=== PATIENT | female | born 1965 | race Hispanic/Latino ===

== ENCOUNTER 2024-01-14 18:42 | Emergency (ER) | payer OTHER, SELFPAY ==
--- NOTE | 2024-01-14 19:39 | RAD REPORT ---
EXAMINATION: Forearm Right CLINICAL INDICATION: Female, 58 years old. fall/injury COMPARISON: No prior exam. FINDINGS: No acute right forearm fracture. No malalignment/dislocation. Other: n/a IMPRESSION: No acute osseous abnormality involving the right forearm.
[2024-01-14] MEDS ORDERED: DIAZEPAM 5 MG TABLET ONE (19:43)
--- NOTE | 2024-01-14 19:50 | RAD REPORT ---
EXAMINATION: Elbow Right 3 View CLINICAL INDICATION: Female, 58 years old. fall/injury RIGHT COMPARISON: No prior exam. FINDINGS: No acute fracture. No malalignment/dislocation. Olecranon spurring. Other: n/a IMPRESSION: No acute osseous abnormality.
--- NOTE | 2024-01-14 19:57 | RAD REPORT ---
EXAMINATION: CT HEAD WITHOUT CONTRAST CT CERVICAL SPINE WITHOUT CONTRAST CLINICAL INDICATION: Female, 58 years old. fall/injury TECHNIQUE: Axial CT images from the skull base to the vertex without intravenous contrast. Axial CT i mages through the cervical spine were obtained without intravenous contrast. Sagittal and coronal reformatted images were created from the data set. Coronal and sagittal reformatted images were creat ed from the data set. One or more of the following dose reduction techniques were used: Automated exposure control, adjustment of the mA and/or kV according to patient size, and/or iterative reconstr uction. Unless otherwise specified, incidental findings do not require dedicated imaging follow-up. [id number]. COMPARISON: No prior exam. FINDINGS: Head: INTRACRANIAL: No acute intracranial hemorrhage. No hydrocephalus. 9 mm x 13 mm lesion present along t he right anterior clinoid process No significant white matter disease. VASCULATURE: No visualized abnormalities in the arteries or dural venous sinuses. SCALP/SKULL: No significant soft tissue or osseous abnormalities. SINUSES: The visualized paranasal sinuses and mastoid air cells are predominantly clear. Cervical spine: ALIGNMENT: The cervical spine has normal alignment without scoliosis or spondylolisthesis. BONE: Vertebral body heights are maintained. No aggressive osseous lesions. DEGENERATIVE CHANGES: Mild degenerative changes including mild right neural foraminal narrowing at C3 -4 and moderate left neural foraminal narrowing at C5-6. SOFT TISSUE: No significant abnormalities in the soft tissue of the neck. The visualized lung apices are clear. IMPRESSION: 1. No acute intracranial hemorrhage or skull fracture. Mass along the right anterior clinoid process measuring up to 13 mm could represent a meningioma or possibly aneurysm. Further evaluation with MRI with and without contrast is recommended. A CTA could exclude an aneurysm. 2. No acute fracture or traumatic malalignment of the cervical spine.
[2024-01-14 20:26] LABS: Absolute Basophils 0.1 K/uL (0-0.5); Absolute Eosinophils 0.3 K/uL (0-0.5); Absolute Lymphocytes (CBC) 2.1 K/uL (0.7-4.9); Absolute Monocytes 0.5 K/uL (0.1-1.3); Absolute Neutrophil 5.3 K/uL (1.8-8.0); Basophils % 0.8 % (0-1.3); Eosinophils % 3.4 % (0-4.4); Hemoglobin 14.1 g/dL (12.0-15.0); Lymphocytes % 25.3 % (15.3-44.8); MCH 30.9 pg (27.0-35.0); MCHC 33.5 g/dL (32.0-36.0); MCV 92.1 fL (80-100); MPV 7.8 fL (7.6-11.3); Monocytes % 6.1 % (3.3-12.3); Neutrophils % 64.4 % (41.7-73.7); Nucleated Red Blood Cells % 0.1 % (0-0); Platelets 349 thou/uL (152-406); RBC Red Blood Cell Count 4.56 M/uL (3.86-4.86)
[2024-01-14 20:32] LABS: Anion Gap 9.5 mEq/L (5.0-15.0); Potassium 3.5 mEq/L (3.5-5.1)
--- NOTE | 2024-01-14 21:00 | RAD REPORT ---
EXAMINATION: CTA HEAD CLINICAL INDICATION: Female, 58 years old. eval for aneurysm TECHNIQUE: Axial CT images were obtained through the head after intravenous contrast utilizing angiog raphic protocol with 3D post-processing (maximum intensity projection images, volume rendered images and/or shaded surface rendered images). One or more of the following dose reduction technique s were used: Automated exposure control, adjustment of the mA and/or kV according to patient size, and/or iterative reconstruction. Unless otherwise specified, incidental findings do not require dedic ated imaging follow-up. COMPARISON: Same day head CT. 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 The bilateral ICA s are patent without evidence of stenosis or occlusion. SHAN: Anterior cerebral arteries are normal bilaterally. The anterior communicating artery is patent. MCA: Middle cerebral arteries are normal bilaterally. MANAGER PORT: Posterior cerebral arteries are normal bilaterally. Vertebrobasilar: The vertebral arteries are patent. The basilar artery is normal in appearance. 3D images confirm these findings. IMPRESSION: Large saccular right supraclinoid ICA aneurysm measuring up to 13 mm. Recommend neurosurgical consult ation. Conveyed to Dr. Ram by Dr. Wong at 855 pm on 01/14/24
--- NOTE | 2024-01-14 21:05 | EDPHYS ---
Physician Documentation [facility] Name: Roseann Zhang Age: 58 yrs Sex: Female : 1965 Arrival Date: 01/14/2024 Time: 18:42 Bed 5 Private MD: ED Physician Brendon Ram HPI: 01/13 19:08 This 58 yrs old Female presents to ER via Ambulatory with complaints of Fall ec2 Injury. 19:08 Patient arrives today for evaluation after ground-level fall. Patient reports that she ec2 slipped and fell and injured the right arm and her right head. Reports possible LOC, no blood thinners. Complains of head and neck pain as well as right elbow and forearm pain.. Historical: - Allergies: 18:49 No Known Allergies; kc6 - PMHx: 18:49 Hypothyroidism; Hypercholesterolemia; kc6 - PSHx: 18:49 None; kc6 - Immunization history:: Last tetanus immunization: not immunized. - Infectious Disease History:: Denies. - Social history:: Smoking status: Patient denies any tobacco usage or history of. ROS: 19:08 Constitutional: as per hpi ec2 Exam: 19:08 Constitutional: GEN: No acute distress HEENT: -Head: no deformities, contusion to the ec2 right forehead -Eyes: EOMI CV: regular rate LUNGS: no respiratory distress ABD: non-tender SKIN: no wounds appreciated MSK: No C/T/L spine deformities RUE w/o bony deformity, TTP to the elbow and forearm with intact distal neurovascular status. LUE w/o bony deformity RLE w/o bony deformity LLE w/o bony deformity NEURO: moves all extremities equally, GCS 15 (E4, V5, M6) Vital Signs: 18:47 Pain 8/10; kc6 18:51 BP 144 / 73; Pulse 67; Resp 17 S; Temp 98.2(O); Pulse Ox 98% on R/A; Weight 72.57 kg kc6 (R); Height 5 ft. 1 in. (R); Pain 8/10; 19:00 BP 149 / 81; Pulse 67; Resp 18; Pulse Ox 96% on R/A; al5 19:15 BP 138 / 76; Pulse 67; Resp 17; Pulse Ox 96% on R/A; al5 19:45 BP 149 / 88; Pulse 66; Resp 16; Pulse Ox 97% on R/A; al5 20:00 BP 140 / 73; Pulse 68; Resp 16; Pulse Ox 95% on R/A; al5 20:15 BP 147 / 82; Pulse 67; Resp 17; Pulse Ox 97% on R/A; al5 20:48 BP 156 / 89; Pulse 66; Resp 17; Pulse Ox 98% on R/A; al5 21:00 BP 153 / 84; Pulse 71; Resp 15; Pulse Ox 98% on R/A; al5 21:15 BP 162 / 91; Pulse 71; Resp 17; Pulse Ox 97% on R/A; al5 21:30 BP 130 / 67; Pulse 67; Resp 13; Pulse Ox 96% on R/A; al5 18:51 Body Mass Index 30.23 (72.57 kg, 154.94 cm) kc6 18:47 Pain Scale: Adult kc6 18:51 Pain Scale: Adult kc6 MDM: 19:01 Medical Screening Exam initiated ec2 19:08 Data reviewed: vital signs, nurses notes. ED course: Patient arrives today for ec2 evaluation after ground-level fall. Evaluation is revealing for MSK findings as above. Will obtain CT scan of the head and C-spine given the patient's LOC, will obtain elbow and forearm x-rays as well.. 19:59 ED course: CT scan of the head assessment for traumatic pathology, does show possible ec2 mass versus aneurysm, will obtain follow-up CT angio of the head to further clarify this. Radiographs otherwise negative.. 21:04 ED course: Discussed the case with radiology, found to have a 1.3 cm aneurysm in the ec2 right ICA, patient without any focal deficits, remains intact neurologically with minimally elevated blood pressures, will transfer patient to neurosurgical capable facility.. 21:21 ED course: I discussed case with neurology and will transfer for further management. ec2 Will start the patient on Cardene with a blood pressure goal systolics less than 140 per neurology recommendations at [facility]. 01/13 19:59 Order name: CBC with Diff; Complete Time: 20:49 ec2 01/13 19:59 Order name: BMP; Complete Time: 20:49 ec2 01/13 19:07 Order name: Elbow Right 3 View XRAY; Complete Time: 19:58 ec2 01/13 19:07 Order name: CT Head C Spine; Complete Time: 19:58 ec2 01/13 19:07 Order name: Forearm Right XRAY; Complete Time: 19:50 ec2 01/13 19:59 Order name: CT Head Angio; Complete Time: 21:01 ec2 01/13 19:59 Order name: IV; Complete Time: 20:25 ec2 Administered Medications: 19:18 CANCELLED (Physician Discretion): diazepam5 mg IM once ec2 19:51 Drug: Diazepam PO 5 mg PO once Route: PO; al5 21:06 Follow up: Response: No adverse reaction al5 21:39 Drug: niCARdipine IV 5 mg/hr IV at calculated rate See Administration Instructions; al5 (Standard concentration 25 mg / 250 mL NS); Recommended max rate 15 mg/hr; Titrate 2.5 mg/hr as often as every 15 minutes to achieve goal (see titration policy); Goal parameter SBP less than 160 mmHg Route: IV; Rate: calculated rate; Site: right antecubital; 22:20 Follow up: Response: No adverse reaction; IV Status: Infusion continued upon transfer al5 Disposition Summary: 01/14/24 21:05 Transfer Ordered Notes: Transfer Location: [facility] ec2 Reason: Higher level of care ec2 Condition: Fair ec2 Problem: new ec2 Symptoms: are unchanged ec2 Accepting Physician: transferring doc(01/14/24 22:21) al5 Diagnosis - 1.3cm ICA Aneurysm ec2 Forms: - Medication Reconciliation Form ec2 - SBAR form ec2 Critical care time excluding procedures: 22:15 Critical care time: Bedside Care: 30 minutes, Consultation: 5 minutes, Family ec2 Intervention: 5 minutes. Total time: 40 minutes Signatures: Dispatcher [employer] Feli Orellana RN RN [id number] Brendon Ram MD MD ec2 Milvia Ellington RN RN al5 Corrections: (The following items were deleted from the chart) 19:08 19:08 Elbow Right 3 View+RAD.RAD.BRZ ordered. EDMS EDMS 19:08 19:08 Head C Spine MPR Wo Con+CT.RAD.BRZ ordered. EDMS EDMS 19:08 19:08 Forearm Right+RAD.RAD.BRZ ordered. EDMS EDMS 19:18 19:07 Diazepam IM 5 mg IM once ordered. ec2 ec2 22:15 21:21 ED course: I discussed case with neurosurgery and neurology and will transfer for ec2 further management. Will start the patient on Cardene with a blood pressure goal systolics less than 140 per neurology recommendations at [facility]. ec2 22: 21:05 transferring doc ec2 al5
--- NOTE | 2024-01-14 21:05 | ER ---
Nurse's Notes [facility] Name: Roseann Zhang Age: 58 yrs Sex: Female : 1965 Arrival Date: 01/14/2024 Time: 18:42 Bed 5 Private MD: Diagnosis: 1.3cm ICA Aneurysm Presentation: 01/13 18:47 Chief complaint: Patient states: "I had a fall at work. I hit myself on the right side kc6 to my head, face and arm" pt reports brief LOC, (-) bloodthinners. Coronavirus screen: At this time, the client does not indicate any symptoms associated with coronavirus-19. Ebola Screen: No symptoms or risks identified at this time. 18:47 Method Of Arrival: Ambulatory [facility] 18:47 Acuity: SIMON 3 kc6 18:51 Initial Sepsis Screen: Does the patient meet any 2 criteria? No. Patient's initial kc6 sepsis screen is negative. Does the patient have a suspected source of infection? No. Patient's initial sepsis screen is negative. Risk Assessment: Do you want to hurt yourself or someone else? Patient reports no desire to harm self or others. Onset of symptoms was January 14, 2024. Historical: - Allergies: 18:49 No Known Allergies; kc6 - PMHx: 18:49 Hypothyroidism; Hypercholesterolemia; kc6 - PSHx: 18:49 None; kc6 - Immunization history:: Last tetanus immunization: not immunized. - Infectious Disease History:: Denies. - Social history:: Smoking status: Patient denies any tobacco usage or history of. Screenin:38 [facility] ED Fall Risk Assessment (Adult) History of falling in the last 3 months, al5 including since admission Yes- single mechanical fall (1 pt) Confusion or Disorientation No (0 pts) Intoxicated or Sedated No (0 pts) Impaired Gait No (0 pts) Mobility Assist Device Used No (0 pt) Altered Elimination No (0 pt) Score/Fall Risk Level 0 - 2 = Low Risk Oriented to surroundings, Maintained a safe environment, Hourly rounding (assess needs \\T\\ fall precautionary measures) done. Abuse screen: Denies threats or abuse. Denies injuries from another. Nutritional screening: No deficits noted. Tuberculosis screening: No symptoms or risk factors identified. Assessment: 19:07 General: Appears in no apparent distress. uncomfortable, Behavior is calm, cooperative. al5 Pain: Complains of pain in head, neck and right arm Pain currently is 5 out of 10 on a pain scale. Neuro: Level of Consciousness is awake, alert, obeys commands, Oriented to person, place, time, situation. Cardiovascular: Capillary refill < 3 seconds Patient's skin is warm and dry. Respiratory: Airway is patent Respiratory effort is Respiratory pattern is regular, symmetrical. GI: No signs and/or symptoms were reported involving the gastrointestinal system. : No signs and/or symptoms were reported regarding the genitourinary system. EENT: No signs and/or symptoms were reported regarding the EENT system. Derm: Skin is intact, is healthy with good turgor, Skin is pink, warm \\T\\ dry. normal. Musculoskeletal: Reports pain in head, neck and right arm. 20:34 Reassessment: Patient appears in no apparent distress at this time. Patient and/or al5 family updated on plan of care and expected duration. Pain level reassessed. Patient is alert, oriented x 3, equal unlabored respirations, skin warm/dry/pink. Patient denies pain at this time. 21:41 Reassessment: Patient appears in no apparent distress at this time. No changes from al5 previously documented assessment. Patient and/or family updated on plan of care and expected duration. Pain level reassessed. Patient is alert, oriented x 3, equal unlabored respirations, skin warm/dry/pink. 22:20 Reassessment: Patient appears in no apparent distress at this time. No changes from al5 previously documented assessment. Patient and/or family updated on plan of care and expected duration. Pain level reassessed. Patient is alert, oriented x 3, equal unlabored respirations, skin warm/dry/pink. Vital Signs: 18:47 Pain 8/10; kc6 18:51 BP 144 / 73; Pulse 67; Resp 17 S; Temp 98.2(O); Pulse Ox 98% on R/A; Weight 72.57 kg kc6 (R); Height 5 ft. 1 in. (R); Pain 8/10; 19:00 BP 149 / 81; Pulse 67; Resp 18; Pulse Ox 96% on R/A; al5 19:15 BP 138 / 76; Pulse 67; Resp 17; Pulse Ox 96% on R/A; al5 19:45 BP 149 / 88; Pulse 66; Resp 16; Pulse Ox 97% on R/A; al5 20:00 BP 140 / 73; Pulse 68; Resp 16; Pulse Ox 95% on R/A; al5 20:15 BP 147 / 82; Pulse 67; Resp 17; Pulse Ox 97% on R/A; al5 20:48 BP 156 / 89; Pulse 66; Resp 17; Pulse Ox 98% on R/A; al5 21:00 BP 153 / 84; Pulse 71; Resp 15; Pulse Ox 98% on R/A; al5 21:15 BP 162 / 91; Pulse 71; Resp 17; Pulse Ox 97% on R/A; al5 21:30 BP 130 / 67; Pulse 67; Resp 13; Pulse Ox 96% on R/A; al5 18:51 Body Mass Index 30.23 (72.57 kg, 154.94 cm) kc6 18:47 Pain Scale: Adult kc6 18:51 Pain Scale: Adult kc6 ED Course: 18:44 Patient arrived in ED. mg5 18:49 Triage completed. kc6 18:49 Arm band placed on. kc6 19:01 Brendon Ram MD is Attending Physician. ec2 19:07 Milvia Ellington, LES is Primary Nurse. al5 19:25 Elbow Right 3 View XRAY In Process Unspecified. EDMS 19:25 Forearm Right XRAY In Process Unspecified. EDMS 19:35 CT Head C Spine In Process Unspecified. EDMS 19:38 Bed in low position. Call light in reach. Side rails up X2. Provided Education on: plan al5 of care. 19:38 No provider procedures requiring assistance completed. al5 20:15 Inserted saline lock: 20 gauge in right antecubital area, using aseptic technique. al5 Blood collected. Flushed with 10 mL NS. 20:49 CT Head Angio In Process Unspecified. EDMS 22:20 Inserted saline lock: 20 gauge in left antecubital area, using aseptic technique. al5 Flushed with 10 mL NS. 22:21 Patient transferred, IV remains in place. al5 Administered Medications: 19:18 CANCELLED (Physician Discretion): diazepam5 mg IM once ec2 19:51 Drug: Diazepam PO 5 mg PO once Route: PO; al5 21:06 Follow up: Response: No adverse reaction al5 21:39 Drug: niCARdipine IV 5 mg/hr IV at calculated rate See Administration Instructions; al5 (Standard concentration 25 mg / 250 mL NS); Recommended max rate 15 mg/hr; Titrate 2.5 mg/hr as often as every 15 minutes to achieve goal (see titration policy); Goal parameter SBP less than 160 mmHg Route: IV; Rate: calculated rate; Site: right antecubital; 22:20 Follow up: Response: No adverse reaction; IV Status: Infusion continued upon transfer al5 Medication: 19:38 VIS not applicable for this client. al5 Outcome: 21:05 ER care complete, transfer ordered by . ec2 22:21 Transferred by [facility] to [facility], al5 22:21 Condition: stable 22:21 Instructed on the need for transfer, 22:21 Patient left the ED. al5 Signatures: Dispatcher [employer] Feli Orellana RN RN [facility] [place] mg5 Brendon Ram MD MD ec2 Milvia Ellington RN RN al5
[2024-01-14] MEDS ORDERED: Nicardipine/NS 25 MG/250 ML KIT IV ONE (21:22)
[2024-01-15 04:33] VITALS: TEMP 98.2
[2024-01-15 04:44] VITALS: BP 130/67; O2SAT 96
== END 2024-01-14 22:21 | disposition short-term general hospital (02) ==
LOC: ER 18:42
DX: I72.0 Aneurysm of carotid artery (principal); W01.0XXA Fall on same level from slipping, tripping and stumbling without subsequent striking against object, initial encounter
CPT/HCPCS: 96365; 85025; 80048; 36415; 70450; 72125; 70496; 73080; 73090; 99285; Q9967